=== PATIENT | male | born 1990 | race Caucasian/White ===

== ENCOUNTER 2024-08-04 17:55 | Emergency (ER) | payer OTHER ==
[~2024-08-04] VITALS: Ht 167.6 cm; Wt 117.9 kg
[2024-08-04 17:55] VITALS: BP 152/70; PULSE 120; RESP 20; TEMP 99.2; O2SAT 100
[2024-08-04] MEDS: NACL 0.9% 1,000 ML IV ONE (19:49)
[2024-08-04] MEDS: MORPHINE SULFATE 4 MG/ML SYR IVP ONE (19:53)
[2024-08-04 20:13] LABS: BASOPHILS % (AUTO) 0.5 % (0.0-2.0); EOSINOPHILS % (AUTO) 0.7 % (0.0-4.0); HEMOGLOBIN 10.7 g/dL (12.0-18.0); LYMPHOCYTES # (AUTO) 0.3 K/uL (2.0-11.5); LYMPHOCYTES % (AUTO) 8.8 % (20.5-51.1); MEAN CORPUSCULAR HEMOGLOBIN 30 pg (27-31); MEAN CORPUSCULAR HGB CONC 34 g/dL (33-37); MEAN CORPUSCULAR VOLUME 88.2 fL (80-94); MONOCYTES # (AUTO) 0.3 K/uL (0.8-1.0); MONOCYTES % (AUTO) 9.9 % (1.7-9.3); NEUTROPHILS # (AUTO) 2.5 K/uL (1.8-7.7); NEUTROPHILS % (AUTO) 80.1 % (42.2-75.2); PLATELET COUNT (AUTO) 34 K/uL (140-450); RED BLOOD CELL COUNT(AUTO) 3.52 MIL/uL (4.20-6.10); RED CELL DISTRIBUTION WIDTH 15.7 % (11.6-13.7); WHITE BLOOD COUNT (AUTO) 3.2 K/uL (4.8-10.8)
[2024-08-04 20:49] LABS: ANION GAP 12.1 (8-16); CARBON DIOXIDE 24.5 mmol/L (21-32); CREATININE 0.6 mg/dL (0.6-1.3); POTASSIUM 3.6 mmol/L (3.5-5.1)
[2024-08-04 22:05] VITALS: BP 127/73; PULSE 80; RESP 15; TEMP 98; O2SAT 96
== END 2024-08-04 21:50 | disposition home or self-care (01) ==
LOC: MED 17:55
DX: R56.9 Unspecified convulsions (principal); R51.9 Headache, unspecified; R03.0 Elevated blood-pressure reading, without diagnosis of hypertension; F17.200 Nicotine dependence, unspecified, uncomplicated; Z88.6 Allergy status to analgesic agent
CPT/HCPCS: 36415; 80048; 85025; 96361; 96374; 99283; J2270; J7030